=== PATIENT | male | born 1955 | race Caucasian/White ===

== ENCOUNTER 2016-10-10 11:15 | Outpatient (CLI) | payer MEDICARE | END 2016-10-10 11:16 | LOC: LAB 11:15 | PROVIDERS: ATTEND Family Medicine | DX: R73.03 Prediabetes (principal); R73.9 Hyperglycemia, unspecified | CPT/HCPCS: 36415; 83036 ==

== ENCOUNTER 2016-12-30 07:30 | Outpatient (CLI) | payer MEDICARE | END 2016-12-30 07:32 | LOC: LAB 07:30 | PROVIDERS: ATTEND Urology | DX: R97.20 Elevated prostate specific antigen [PSA] (principal) | CPT/HCPCS: 36415; 84153 ==

== ENCOUNTER 2018-04-24 08:55 | Outpatient (CLI) | payer MEDICARE ==
[2018-04-24 10:05] LABS: eGFR (Non-African) > 60
== END 2018-04-24 08:56 ==
LOC: LAB 08:55
PROVIDERS: ATTEND Physician Assistant
DX: E11.9 Type 2 diabetes mellitus without complications (principal); E78.2 Mixed hyperlipidemia; I10 Essential (primary) hypertension
CPT/HCPCS: 36415; 80053; 80061; 83036

== ENCOUNTER 2018-10-05 10:27 | Emergency (ER) | payer MEDICARE ==
--- NOTE | 2018-10-05 10:36 | ED Physician Documentation ---
General Adult - HISTORIAN Historian: patient - HPI Stated Complaint: laceration left hand Chief Complaint: Laceration/Recheck/Suture Onset: hours (1) Timing: still present Severity: mild Further Comments: yes (He was working and he did "stab" mysefl with a screwdriver . Denies any other pain. He states he barely got the tip in the hand. He states he has had bleeding which has now stopped. He has no decreased ROM. He has normal sensation.) - ROS CONST: no problems MS/SKIN/LYMPH: other (laceration ) - PAST HX Past History: none Allergies/Adverse Reactions: Allergies Allergy/AdvReac Type Severity Reaction Status Date / Time benzoin Allergy Intermediate Blister Unverified 04/03/13 20:50 Home Medications: Ambulatory Orders Medication Instructions Recorded Cetirizine HCl [Zyrtec] 10 mg PO u2 06/19/15 Aspirin 81 mg PO DAILY u2 10/28/15 Epinephrine [Epipen 2-Shorty] 0.3 mg IM 1T #1 sz 10/28/15 Naproxen Sodium [Aleve] 220 mg PO SEE.INSTRUCTIONS #30 u2 10/28/15 - SOCIAL HX Smoking History: non-smoker Alcohol Use: none Drug Use: none - FAMILY HX Family History: No - VITAL SIGNS Vital Signs: Vital Signs Temp Pulse Resp BP Pulse Ox 98.7 F 60 14 165/76 98 10/05/18 10:28 10/05/18 10:28 10/05/18 10:28 10/05/18 10:28 10/05/18 10:28 - REVIEWED ASSESSMENTS Nursing Assessment Reviewed: Yes Vitals Reviewed: Yes ED Results Lab/Radiology - Orders Orders: ED Orders Category Date Time Status Apply Steri-Strips 1T Care 10/05/18 11:02 Active Apply/change dressing NOW Care 10/05/18 11:03 Active Cleanse with NS and Chlorhexid 1T Care 10/05/18 11:02 Active Diph,Pertuss(Acell),Tet Vac/Pf [Adacel] Med 10/05/18 11:05 Discontinued 0.5 ml IM .ONCE ONE General Adult Physical Exam - PHYSICAL EXAM GENERAL APPEARANCE: no distress EENT: eye inspection normal, no signs of dehydration NECK: normal inspection RESPIRATORY: no resp distress CVS: reg rate & rhythm, heart sounds normal, equal pulses ABDOMEN: soft, normal bowel sounds, no distension BACK: normal inspection SKIN: warm/dry, other (1 cm laceration on left palm. No current bleeding. FROM. Pulses + sensation + ) EXTREMITIES: non-tender NEURO: oriented X3 Discharge Clincal Impression: Laceration of left hand Qualifiers: Encounter type: initial encounter Foreign body presence: without foreign body Qualified Code(s): S61.412A - Laceration without foreign body of left hand, initial encounter Referrals: Serge Jansen MD [Primary Care Provider] - 2 Days Comments: 1. Keep area clean and dry 2. AVOID overuse 3. Notify PCP of signs of infection - redness, drainage, pain 4. return to ER for any concerns Condition: Stable Disposition: 01 HOME, SELF-CARE Decision to Admit: NO Date of Decison to Admit: 10/05/18 Decision Time: 11:32
[2018-10-05 11:49] VITALS: BP 143/60
[2018-10-05] MEDS: DIPH,PERTUSS(ACELL),TET VAC/PF 0.5 ML DISP.SYRIN IM ONE (11:53)
== END 2018-10-05 11:57 | disposition home or self-care (01) ==
LOC: ED 10:27
DX: S61.412A Laceration without foreign body of left hand, initial encounter (principal); W27.0XXA Contact with workbench tool, initial encounter; Y93.9 Activity, unspecified; Y92.9 Unspecified place or not applicable
CPT/HCPCS: 90471; 90715; 99282; 99283

== ENCOUNTER 2019-07-11 07:39 | Outpatient (CLI) | payer MEDICARE ==
[2019-07-11 08:34] LABS: eGFR (Non-African) > 60
[2019-07-11 08:35] LABS: A1C 5.1 % (<5.7); HDL 39 mg/dL (>40)
[2019-07-11 09:32] LABS: BASOPHILS % 0.4 % (0.0-1.5); NEUTROPHILS # 3.2 # k/uL (1.4-7.7)
[2019-07-11 09:33] LABS: SEGMENTED NEUTROPHILS % 44 % (39-79)
== END 2019-07-11 07:44 ==
LOC: LAB 07:39
PROVIDERS: ATTEND Family Medicine
DX: I10 Essential (primary) hypertension (principal); E11.9 Type 2 diabetes mellitus without complications; E78.2 Mixed hyperlipidemia
CPT/HCPCS: 36415; 80053; 80061; 83036; 85025